=== PATIENT | female | born 1965 | race Caucasian/White ===

== ENCOUNTER → 2022-03-22 | Day surgery (SDC) | payer OTHER ==
[~2022-03-22] VITALS: Ht 162.6 cm; Wt 109.0 kg
== END | disposition home or self-care (01) ==
LOC: FAS 07:50
DX: R19.7 Diarrhea, unspecified (principal); K29.50 Unspecified chronic gastritis without bleeding; D12.0 Benign neoplasm of cecum; D12.8 Benign neoplasm of rectum; K57.30 Diverticulosis of large intestine without perforation or abscess without bleeding; E66.8 Other obesity; Z68.41 Body mass index [BMI] 40.0-44.9, adult; Z90.49 Acquired absence of other specified parts of digestive tract; Z83.71 Family history of colonic polyps; Z88.6 Allergy status to analgesic agent; Z88.1 Allergy status to other antibiotic agents; Z88.2 Allergy status to sulfonamides; Z88.8 Allergy status to other drugs, medicaments and biological substances; Z91.018 Allergy to other foods
CPT/HCPCS: J2250; J2704; J7120